=== PATIENT | male | born 1950 | race Caucasian/White ===

== ENCOUNTER 2019-08-02 11:13 | Emergency (ER) | payer BC ==
[2019-08-02] MEDS ORDERED: SODIUM CHLORIDE 500 ML IV STA (11:29)
[2019-08-02] MEDS ORDERED: HEPARIN NA (PORCINE) 5,000 UNITS/ML 1ML VIAL IVPUSH PRN ×2 (11:29)
[2019-08-02] MEDS ORDERED: HEPARIN NA (PORCINE) 5,000 UNITS/ML 1ML VIAL IVPUSH ONE (11:29)
[2019-08-02] MEDS ORDERED: HEPARIN - 25,000 UNIT in SODIUM CHLORIDE 495 ML IV SCH (11:30)
[2019-08-02 11:39] VITALS: TEMP 97.9; BMI 21.2
[2019-08-02] MEDS ORDERED: HEPARIN INFUSION - 25,000 UNITS/500 ML INFUS.BAG IVPB ONE (11:41)
[2019-08-02] MEDS ORDERED: TICAGRELOR 90 MG TABLET PO ONE (11:44)
[2019-08-02] MEDS ORDERED: TICAGRELOR 90 MG TABLET PO SCH (11:45)
[2019-08-02 11:48] LABS: BASO % 0.4 % (0-2.0); EOS % 1.5 % (0-4.5); HEMATOCRIT 45.7 % (35.4-49); HEMOGLOBIN 15.2 GM/dL (11.7-16.9); LYMPH % 18.5 % (8-40); MCH 31.1 pg (25.7-33.7); MCHC 33.4 g/dl (32.0-35.9); MEAN CELL VOLUME 93.2 fl (80-96); MEAN PLT VOLUME 10.1 fl (7.5-11.1); MONO % 7.1 % (3.8-10.2); NEUT % 72.5 % (42.8-82.8); PLATELET COUNT 147 K/MM3 (134-434); RDW 13.2 % (11.9-15.9); WHITE BLOOD COUNT 7.4 K/mm3 (4.0-10.0)
--- NOTE | 2019-08-02 11:50 | PDOC ---
Documentation entered by Ricci Rodriguez SCRIBE, acting as scribe for Elliot Lo MD. Elliot Lo MD: This documentation has been prepared by the Michael duarte Daniel, SCRIBE, under my direction and personally reviewed by me in its entirety. I confirm that the documentation accurately reflects all work, treatment, procedures, and medical decision making performed by me. Attending Attestation - Resident Resident Name: Anup Ware - ED Attending Attestation I have performed the following: I have examined & evaluated the patient, The case was reviewed & discussed with the resident, I agree w/resident's findings & plan, Exceptions are as noted - HPI HPI: 08/02/19 11:44 The patient is a 68 year old with a past medical history of HTN brought in today by EMS for evaluation of chest pain. The patient reports that he began to have chest pain last night with some associated shortness of breath. 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 He states that his pain is better now and also notes some associated dizziness. Patient denies headache. Denies fever, chills. Denies nausea, vomiting, diarrhea , abdominal pain. Allergies: penicillins, sulfa - Physicial Exam PE: 08/02/19 11:49 See above - Critical Care Time Total Critical Care Time: 35 Critical Care Statement: The care of this patient involved high complexity decision making to prevent further life threatening deterioration of the patient 's condition and/or to evaluate & treat vital organ system(s) failure or risk of failure. - Medical Decision Making 08/02/19 11:33 68y M hx of htn presents with complaint of intermittent chest pain described as chest tightness last night at rest and again this morning was at work. Patient was given 4 aspirin by EMS currently asymptomatic. Patient appears well, no distress. Per EMS the patient was noted to be mildly hypertensive in the 160s. Upon arrival the patient had an EKG with STEMI in the inferior and anterior leads. GENERAL: The patient is awake, alert, and fully oriented, Nontoxic - in no acute distress. HEAD: Normocephalic, atraumatic. EYES: extraocular movements intact, sclera anicteric, conjunctiva clear. ENT: Normal voice, Moist mucous membranes. NECK: Normal range of motion, supple LUNGS: Breath sounds equal, clear to auscultation bilaterally. No wheezes, no rhonchi, no rales. HEART: Regular rate and rhythm, normal S1 and S2 without murmur, rub or gallop. ABDOMEN: Soft, nontender, No guarding, no rebound. No CVA tenderness EXTREMITIES: Normal range of motion, no edema. NEUROLOGICAL: No facial assymetry, Normal speech, PSYCH: Normal mood, normal affect. SKIN: Warm, Dry, normal turgor, [facility] transfer center called 08/02/19 11:37 case guadalupe Martínez from Interventional team Requested EKG, sent Code Red initiated by [facility] transfer center 08/02/19 11:48 Case was accepted under the care of Dr. Chambers (Interventional) Patient will transfer to [facility] for higher level of care as we do not offer catherization here. Patient agrees with transfer The patient was seen and examined to determine medical stability. The patient is MEDICALLY STABLE at this time. Labs, EKG, radiological studies were ordered to expedite the patient's care. I certify that I have discussed with the patient and/or his business development representative the following risks and benefits of the proposed transfer. Risks include worsening of patients condition during transport,auto accident, or permanent disability. Benefits include receiving specialized care not available at this facility. I certify that, based on the information available at this time, the medical benefits reasonably expected from the provision of appropriate medical treatment at the receiving facility outweigh the increased risk to the patient. I believe the patient/relative/guardian understands what I have explained and answered. The patient will be transferred to the service of Dr. Chambers at [facility] 08/02/19 11:59 EMS bedside to [facility] pick[facility] pt pt wo current cp 08/02/19 12:14 EMS depated w patient 08/04/19 09:24
--- NOTE | 2019-08-02 11:56 | PDOC ---
History of Present Illness - General Chief Complaint: Chest Pain Stated Complaint: CB/SOB Time Seen by Provider: 08/02/19 11:28 - History of Present Illness Initial Comments: 08/02/19 11:56 68 y/o M hx of HTN, presenting to the ED with chest pain. He began having chest tightness last night, which eventually subsided. Chest tightness resumed again this a.m, accompanied by shortness of breath on exertion. He was brought in by EMS. Chest tightness is sternal in nature and radiates towards his right side. pain is rated now as a 3/10 pain which was bearable yesterday but worsened this morning. He denies any lightheadedness, dizziness, syncope, nausea, vomiting, diaphoresis, shortness of breath at rest, productive cough, fevers, chills. 08/02/19 12:10 Past History - Past Medical History Allergies/Adverse Reactions: Allergies Allergy/AdvReac Type Severity Reaction Status Date / Time Penicillins Allergy Verified 08/02/19 12:10 Sulfa (Sulfonamide Allergy Verified 08/02/19 12:10 Antibiotics) COPD: No HTN: Yes - Psycho Social/Smoking Cessation Hx Smoking History: Never smoked Have you smoked in the past 12 months: No Information on smoking cessation initiated: No Hx Alcohol Use: No Drug/Substance Use Hx: No *Physical Exam - Vital Signs Last Vital Signs Temp Pulse Resp BP Pulse Ox 97.9 F 80 22 H 194/101 H 100 08/02/19 11:36 08/02/19 11:36 08/02/19 11:36 08/02/19 11:36 08/02/19 11:36 - Physical Exam 08/02/19 12:11 PE: GENERAL: Awake, alert, and fully oriented, in no acute distress HEAD: No signs of trauma, normocephalic, atraumatic EYES: ,EOMI, sclera anicteric, conjunctiva clear ENT: Auricles normal inspection, hearing grossly normal, nares patent, oropharynx clear without exudates. Moist mucosa NECK: Normal ROM, supple, no lymphadenopathy, JVD, or masses LUNGS: No distress, speaks full sentences, clear to auscultation bilaterally HEART: Regular rate and rhythm, normal S1 and S2, no murmurs, rubs or gallops, ABDOMEN: Soft, nontender, normoactive bowel sounds. No guarding, no rebound. No masses EXTREMITIES : Normal inspection, Normal range of motion, no edema. No clubbing or cyanosis NEUROLOGICAL: Cranial nerves II through XII grossly intact. Normal speech, , no focal sensorimotor deficits SKIN: Warm, Dry, normal turgor, no rashes or lesions noted ED Treatment Course - LABORATORY CBC & Chemistry Diagram: 08/02/19 11:32 08/02/19 11:32 - ADDITIONAL ORDERS Additional order review: 08/02/19 11:32 RBC 4.90 MCV 93.2 MCHC 33.4 RDW 13.2 MPV 10.1 Neutrophils % 72.5 Lymphocytes % 18.5 Monocytes % 7.1 Eosinophils % 1.5 Basophils % 0.4 Medical Decision Making - Medical Decision Making 08/02/19 11:58 68 y/o M hx of HTN, presenting to the ED with chest pain. [facility] contacted for patient transfer Receiving physician Dr. Mccormick Pertinent history and physical findings communicated by Dr. Lo to receiving team. Heparin and ticragrelor given IV Pertinent labs drawn EKG: ST elevations in II,III, aVF discharge paper work prepared 08/02/19 12:13 EMS team arrived for transfer to [facility]. Discharge - Discharge Information Problems reviewed: Yes Clinical Impression/Diagnosis: Hypertensive emergency ST elevation (STEMI) myocardial infarction Qualifiers: Involved coronary artery: unspecified coronary artery Qualified Code(s): I21.3 - ST elevation (STEMI) myocardial infarction of unspecified site Disposition: TRANSFER ACUTE CARE/OTHER HOSP - Admission No - Follow up/Referral - Patient Discharge Instructions - Post Discharge Activity - Transfer to Acute Care Facility Receiving Facility Name: [place] [address] Accepting Physician:: DR. MCCORMICK
[2019-08-02 12:07] VITALS: BP 182/100; PULSE 76
[2019-08-02 12:09] LABS: INR 0.99 (0.83-1.09); PROTHROMBIN TIME (PATIENT) 11.7 SEC (9.7-13.0)
[2019-08-02 12:16] LABS: ALBUMIN 4.1 g/dl (3.4-5.0); BILIRUBIN,TOTAL 0.5 mg/dL (0.2-1); BLOOD UREA NITROGEN 23.5 mg/dL (7-18); CALCIUM 9.5 mg/dL (8.5-10.1); CREATININE 1.1 mg/dL (0.55-1.3); POTASSIUM 4.3 mmol/L (3.5-5.1)
--- NOTE | 2019-08-03 11:45 | EKG ---
Test Reason : Blood Pressure : / mmHG Vent. Rate : 074 BPM Atrial Rate : 074 BPM P-R Int : 156 ms QRS Dur : 086 ms QT Int : 352 ms P-R-T Axes : 065 063 071 degrees QTc Int : 390 ms SINUS RHYTHM WITH PREMATURE ATRIAL COMPLEXES POSSIBLE LEFT ATRIAL ENLARGEMENT ST ELEVATION CONSIDER INFERIOR INJURY OR ACUTE INFARCT ST ELEVATION CONSIDER ANTERIOR INJURY OR ACUTE INFARCT ACUTE AR / STEMI Consider right ventricular involvement in acute inferior infarct ABNORMAL ECG NO PREVIOUS ECGS AVAILABLE Confirmed by VIRGINIA WRIGHT MD ([id number]) on 08/03/2019 11:44:54 AM Referred By: Confirmed By:VIRGINIA WRIGHT MD
== END 2019-08-02 12:23 | disposition short-term general hospital (02) ==
LOC: JER 11:13
PROC: 3E033GC Introduction of Other Therapeutic Substance into Peripheral Vein, Percutaneous Approach (ICD-10-PCS; principal; 2019-08-02)
DX: I21.3 ST elevation (STEMI) myocardial infarction of unspecified site (principal); I16.0 Hypertensive urgency; Z88.0 Allergy status to penicillin; Z88.2 Allergy status to sulfonamides; I10 Essential (primary) hypertension
CPT/HCPCS: 36415; 71045-TC-FY; 80053; 82550; 82553; 84484; 85025; 85610; 93005; 93010; 99285-25; J1644